=== PATIENT | female | born 1990 | race Caucasian/White ===

== ENCOUNTER 2019-06-15 03:18 | Inpatient (IN) ==
[2019-06-15] MEDS ORDERED: CeFAZolin Premix DUPLEX 2,000 MG/50 ML BAG IVPB ONE (03:35)
[2019-06-15] MEDS ORDERED: Famotidine 20 MG/2 ML VIAL IVP PRN (03:35)
[2019-06-15] MEDS ORDERED: Naloxone 0.4 MG/ML INJ IVP PRN (03:35)
[2019-06-15] MEDS ORDERED: Metoclopramide 10 MG/2 ML VIAL IVP PRN ×2 (03:35→08:28)
[2019-06-15] MEDS ORDERED: Ringers Solution, Lactated 1,000 ML ONE ×2 (03:42→05:05)
[2019-06-15] MEDS ORDERED: Ringers Solution, Lactated 1,000 ML IVC SCH ×2 (03:45→08:28)
--- NOTE | 2019-06-15 04:03 | OB/GYN History & Physical ---
Date of Encounter: 06/15/19 Time of Encounter: 03:52 Assessment and Plan (1) 38 weeks gestation of Current visit: Yes Status: Acute (2) Grover breech presentation Current visit: Yes Status: Acute 28YO at 38+6wks GA who presents SROM'd, in labor 1. SROM - actively leaking clear amniotic fluid - good FM contraction(s) every 5 minutes - denies vaginal bleeding, denies abnormal discharge - UTD PNC with Dr. Anand, transfer of care mid from Dr. Santos - dating verified by 1st TM (8wk4d) TVUS ultrasound, complicated by "vanishing t win" - SVE: 1/thick/high, patient is comfortable with examination - consent was signed and anesthesia was consulted for surgery - TAUS performed on admission: grover breech presentation 2. Hx of HCV - known hx of IVDA: heroin - clean for 2 years, was taking Vivitrol - patient to f/u with ID - patient will need PAP smear Dispo: Admission to labor and delivery for delivery. Term , G1, breech presentation. MD EULALIA Qualifiers: Qualified Code(s): O32.1XX0 - Maternal care for breech presentation, not applicable or unspecified History of Present Illness Chief complaint: SROM HPI: Ms. Cortes is a 28 year old female at 38+6wks GA c/b 8wk TVUS who presents in labor, s/p SROM. Patient reports to have started to leak clear fluid early this morning around 0200. Last meal was at 2100 yesterday evening. Denies n/v/d. Good FM. Denies vaginal bleeding. Denies abnormal discharge prior to leaking fluid. Her was complicated by a known hx of HCV, states to have been in remission for the past 2 years. States to have been on Vivitrol pre- . Hx of IV heroin abuse. Patient was scheduled for primary delivery with Dr. Anand on 06/20/2019 at 0745 AM. Otherwise has had an uncomplicated . Presents with FOB and immediate family this morning. OF NOTE, patient was a transfer of care to our practice during . Per patient records from Dr. Diaz office, she had a vanishing twin this . PNB: GBS negative GC/CT negative O positive AB screening Rubella immune HCV positive RPR nonreactive HBsAg negative PATIENT NEEDS PAP Past Med Surg Social Fam HX - Past Medical History Medical history: no medical history Additional medical history: drug use. MRSA Psychiatric history: anxiety - Past Surgical History Surgical History: no surgical history - Social History Smoking Status: Current every day smoker Smokeless Tobacco Status: No Alcohol use: none Drug use: none - Family History Mother Living Status: Still Living Hx Family Cardiac Disorders: Yes (heart disease) Hx Family Respiratory Disorders: No Hx Family Cancer: No Hx Family GI Disorders: No Hx Family Genitourinary Disorders: No Hx Family Endocrine Disorder: Yes (DM) Hx Family Musculoskeletal Disorders: No Hx Family Neuromuscular Disorders: No Hx Family Neurologic Disorders: No Hx Family HEENT Disorders: No Hx Family Autoimmune Disorders: No Hx Family Reproductive Disorders: No Hx Family Psychosocial Disorders: No Hx Family Medical Disorders: No Obstetrical History - Pregnancies : 1 Para: 0 Term: 0 : 0 Ab's: 0 Livin Medications and Allergies Pnv No.115/Iron Fumarate/FA [ 19 Chewable Tablet] 1 each PO DAILY #30 tab.chew 10/27/18 [Rx] Allergy/AdvReac Type Severity Reaction Status Date / Time promethazine [From Phenergan] AdvReac Vomiting Verified 10/27/18 01:16 Exam - Constitutional Constitutional: well developed, well nourished, no acute distress - HEENT HEENT: Normocephaly, Mucus Membranes Moist - Neck Neck exam: full ROM - Lungs Respiratory exam: CTAB - Cardiovascular Cardiovascular exam: RRR - Abdomen Abdomen: Present: bowel sounds normal - Extremities Extremities exam: full ROM Deep Tendon Reflex Grade: 2+ Normal - Vagina Vagina: Present: normal moisture - Cervix Dilation: 1 Station: -3 - Uterus Uterus exam: Present: normal size, normal contour - Anus/Rectum Anus/Rectum: Present: normal perianal skin Results All other labs normal. - VTE Reasons for not Prescribing Prophylaxis: Treatment not Indicated - Low risk for VTE
[2019-06-15 04:04] LABS: Basophils % 0.2 %; Eosinophils # 0.1 K/mcL (0.0-0.6); Eosinophils % 0.7 %; Hematocrit 34.3 % (35.3-44.9); Hemoglobin 11.8 g/dL (11.5-15.4); Immature Granulocytes % 0.9 % (0-4); Lymphocytes # 3.1 K/mcL (0.6-4.6); Lymphocytes % 18.9 %; Mean Corpuscular HGB Conc 34.4 g/dL (31.6-35.5); Mean Corpuscular Hemoglobin 31.2 pg (28.0-33.3); Mean Corpuscular Volume 90.7 fL (83.0-100.0); Mean Platelet Volume 10.6 fL (9.4-12.4); Monocytes # 0.9 K/mcL (0.0-1.3); Monocytes % 5.7 %; Platelet Count 243 K/mcL (140-400); Red Blood Count 3.78 M/mcL (3.82-4.97); Red Cell Distribution Width 12.9 % (11.5-14.5); Segmented Neutrophils % 73.6 %; White Blood Count 16.3 K/mcL (4.3-11.1)
[2019-06-15] MEDS ORDERED: EPHEDrine 50 MG/ML VIAL ONE (05:05)
[2019-06-15] MEDS ORDERED: *HR* Oxytocin 10 UNIT/ML VIAL IM ONE (05:05)
[2019-06-15] MEDS ORDERED: *HR* Morphine Sulfate/PF 10 MG/10 ML AMPUL ONE (05:05)
[2019-06-15] MEDS ORDERED: *HR* FentaNYL (PF) 100 MCG/2 ML VIAL ONE (05:05)
[2019-06-15] MEDS ORDERED: Ondansetron 4 MG/2 ML VIAL ONE (05:06)
[2019-06-15] MEDS ORDERED: Ketorolac 30 MG/ML VIAL ONE (05:06)
[2019-06-15] MEDS ORDERED: Dexamethasone 4 MG/ML VIAL ONE (05:06)
--- NOTE | 2019-06-15 05:22 | Anesthesia Evaluation PreOp ---
Date of Encounter: 06/15/19 Time of Encounter: 04:15 - Past History Planned Operation: pcs breech presentation Cardiac History: Denies any Significant Hx Pulmonary History: Denies Any Significant HX [employer] History: Denies Any Significant HX Other Medical History: Denies Any Significant HX Anesthesia History: No Prior Anesthetic Complications : Yes Test: Positive Alcohol Use: none Drug use: none Medications and Allergies Pnv No.115/Iron Fumarate/FA [ 19 Chewable Tablet] 1 each PO DAILY #30 tab.chew 10/27/18 [Rx] Allergy/AdvReac Type Severity Reaction Status Date / Time promethazine [From Phenergan] AdvReac Vomiting Verified 10/27/18 01:16 - Meds/Allergy Pre-op Review Medications Reviewed: Yes Allergies Reviewed: Yes Beta Blockers on Current Med List: No Anesthesia Results - Labs 06/15/19 03:40 Anesthesia Exam - HEENT Pupil (Motor): Pupils equal Mallampati: II Teeth: Normal Oral Opening: Greater than 3 - [employer] LOC: Oriented [employer] Motor: Normal RUE, Normal LUE, Normal RLE, Normal LLE, Normal Face [employer] Sensory: Normal: RUE, LUE, RLE, LLE, Face - Cardiac Rhythm: Regular Murmur: None JVD: No Carotid Bruit: No - Pulmonary Breath Sounds: bilateral Clear Respiratory Effort: Symmetrical Anesthesia Assess/Plan ASA Score: 1 Level of consciousness: Cooperative Anesthetic Plan: Spinal
--- NOTE | 2019-06-15 05:26 | Anesthesia Procedures ---
Date of Encounter: 06/15/19 Time of Encounter: 04:30 Procedures: Anesthesia - Epidural/Spinal Patient ID/Chart reviewed: Yes Patient examined: Yes OB Eval: Gestational age: 38.6 OB Eval: : 1 OB Eval: Hx Para: 0 OB Eval: Contractions: Non-stressed pattern Consent Obtained: Yes Supplemental Oxygen: None/Room Air Site Prep: Aseptic Technique, Sterile prep and drape, Povidone-Iodine 1% Patient position: upright Amount of Local Anesthetic used: 3 Interspace Used: L4-L5 Blood: No CSF: Yes Paresthesia: No Spinal Needle Gauge: 22 Procedure: tolerated procedure well VSS Vitals + FHT's: FHTS throughout see nursing notes
--- NOTE | 2019-06-15 05:55 | OB/GYN Procedure Note ---
Section - Date of procedure: 06/15/19 Preop diagnosis: breech Post-op diagnosis: same Procedure: primary low transverse Surgeon: Zak Wills Quantitated Blood Loss: 500 Was there an ophthalmology assistant present: No Anesthesia Type: Spinal section complications: none Disposition: L&D Recovery Room Specimens: Placenta, Cord segment, Cord blood - (s) A Infant Delivery Date: 06/15/19 Delivery Time: 05:00 Presentation: footling breech Gender: Male Viability: Viable Pounds: 8 Ounces: 5 Gram Weight: 3760 kg at 1 minute: 9 at 5 minutes: 9 Shoulder Dystocia: not encountered Specimens collected: cord blood Placenta: spontaneous Cord: nuchal cord, delivered through nuchal - Narrative Narrative: OPERATIVE REPORT: PROCEDURE: PRIMARY LOW TRANSVERSE DELIVERY PREOPERATIVE DIAGNOSIS: 1. TERM AT 38+6WKS GA 2. FOOTLING BREECH PRESENTATION 3. SPONTANEOUS RUPTURE OF MEMBRANES 4. HX OF IV DRUG ABUSE POSTOPERATIVE DIAGNOSIS: SAME PATIENT NAME: ZECHARIAH ELIZABETH SURGEON: ZAK WILLS MD PSYCHOLOGICAL AIDE: NONE EBL: 500ML UOP: 100ML YELLOW URINE IVF: 1000ML SPECIMEN: 1. PLACENTA (NOT SENT) 2. CORD BLOOD 3. CORD SEGMENT CONSENT: CONSENT SIGNED WITH PATIENT FOR PLTCS AT TERM FOR BREECH PRESENTATION IN THE SETTING OF LABOR, SPONTANEOUS RUPTURE OF CLEAR FLUID. ALL RISKS WERE DISCUSSED WITH THE PATIENT PRIOR TO ENTERING THE OPERATING ROOM. DETAILS: PATIENT WAS TAKEN TO THE OR WHERE SPINAL ANESTHESIA WAS FOUND TO BE ADEQUATE. PATIENT WAS THEN PREPPED AND DRAPED IN THE USUAL STERILE FASHION. TIMEOUT WAS PERFORMED AND A PFANNENSTIEL SKIN INCISION WAS MADE. WE THEN CARRIED THE INCISION DOWN TO THE LEVEL OF THE FASCIA AND EXTENDED LATERALLY. WE SCORED THE FASCIA AT THE MIDLINE, AND EXTENDED BILATERALLY USING CURVED LAN SCISSORS AND PICK UPS. WE THEN TENTED UP THE FASCIA TO CREATE THE RECTO-FASCIAL PLANE, BOTH SUPERIORLY AND INFERIORLY. WE THEN BLUNTLY THE FASCIA FROM THE RECTUS WITHOUT DEFECT. USING HEMOSTATS, WE THE RECTUS ABDOMINUS AT THE MIDLINE, AND ENTERED THE PERITONEUM BLUNTLY. USING EQUAL BUT OPPOSITE FORCE, WE EXTENDED THE ENTRY OF THE ABDOMEN, AND PLACED THE BLADDER BLADE AT THE LOWER UTERINE SEGMENT TO ENSURE ADEQUATE VISUALIZATION. WE THEN TOOK NOTE OF THE BLADDER REFLECTION, AND DID NOT MAKE A BLADDER FLAP. HYSTEROTOMY WAS PERFORMED, WITH CAUTION THE PATIENT HAD ALREADY SPONTANEOUSLY BEGUN TO LEAK FLUID. THE HYSTEROTOMY WAS EXTENDED LATERALLY (LOW TRANSVERSE) FASHION, WE COULD APPRECIATE BABY BOY IN THE FOOTLING BREECH PRESENTATION. THE BABY WAS ROTATED AND THE BUTTOCKS WAS DELIVERED FIRST, FOLLOWED BY THE R LIMB, THE LEFT LIMB, THE R UPPER EXTREMITY, AND THEN THE L UPPER EXTREMITY. A LOOSE NUCHAL CORD WAS APPRECIATED PRIOR TO DELIVERING THE HEAD. WE DELIVERED THROUGH THE LOOSE NUCHAL. INFANT WAS VIGOROUS AND CRYING. CORD DELAY WAS ALLOWED. WE THEN CUT AND CLAMPED THE UMBILICAL CORD AND HANDED THE TO THE WARMER WITH RN. CORD BLOOD AND SEGMENT WAS COLLECTED. NO GASES REQUIRED OR SENT. PLACENTA WAS THEN DELIVERED INTACT WITH MINIMAL TRACTION. UTERUS WAS EXTERIORIZED AND CLOSED USING 0-VICRYL IN 2 LAYERS, RUNNING LOCKED THEN WITH IMBRICATION. BOTH ANGLES WERE FOUND TO BE HEMOSTATIC WE REPLACED THE UTERUS INTO THE ABDOMEN. WE THEN CLEARED GUTTERS BILATERALLY OF DEBRIS. WE THEN CLOSED OUR FA SCIA INCISION USING STRATAFIX, IN THE USUAL FASHION. SUBCUTANEOUS TISSUE WAS HEMOSTATIC, WE DID IRRIGATE. SKIN WAS CLOSED USING 4-0 VICRYL, IN THE RUNNING UNLOCKED FASHION. ALL COUNTS WERE CORRECT X3. HEMOSTASIS WAS APPRECIATED. WEIGHT: 8#5OZ, 3760GMS APGARS: 06/11 GENDER: MALE ZAK WILLS MD
[2019-06-15] MEDS ORDERED: Ketorolac 30 MG/ML VIAL IVP ONE (05:59)
[2019-06-15] MEDS ORDERED: Ondansetron 4 MG/2 ML VIAL IVP ONE (05:59)
[2019-06-15] MEDS ORDERED: *HR* HYDROmorphone (PF) 1 MG/ML SYRINGE IVP PRN (05:59)
[2019-06-15] MEDS ORDERED: Albuterol 2.5 MG/3 ML NEBULIZER IH ONE (05:59)
[2019-06-15] MEDS ORDERED: *HR* Meperidine 25 MG/ML SYRINGE IVP PRN (05:59)
[2019-06-15] MEDS ORDERED: Oxytocin 20 units/ LR 1000 mL 20 UNIT/1,000 ML BAG IVC ONE (06:01)
[2019-06-15] MEDS ORDERED: Ketorolac 30 MG/ML VIAL IVP PRN (08:28)
[2019-06-15] MEDS ORDERED: Rho Immune Globulin 1,500 UNIT SYRINGE IM ONE (08:28)
[2019-06-15] MEDS ORDERED: Ondansetron 4 MG/2 ML VIAL IVP PRN (08:28)
[2019-06-15] MEDS ORDERED: Oxytocin 20 units/ LR 1000 mL 20 UNIT/1,000 ML BAG IVC SCH (08:28)
[2019-06-15] MEDS ORDERED: Sennosides 8.6 MG TABLET PO PRN (08:28)
[2019-06-15] MEDS ORDERED: Acetaminophen 325 MG TABLET PO PRN (08:28)
--- NOTE | 2019-06-15 10:36 | Anesthesia Evaluation Post Op ---
Date of Encounter: 06/15/19 Time of Encounter: 10:35 - Vital Signs Vital Signs: Vital Signs/O2 Sat, Most Current Temp Pulse Resp BP Pulse Ox 98.1 F 80 16 118/68 99 06/15/19 09:30 06/15/19 09:30 06/15/19 09:30 06/15/19 09:30 06/15/19 09:30 - Lungs Lungs: Clear Ascult./Percussion - Airway Airway: Non-obstructed - Cardiovascular Regular Rate - Mental Status Mental Status: Alert & Oriented, Answers Appropriately - Pain Pain Scale: 4 - Nausea Vomiting Nausea Vomiting: Not Present - Hydration Hydration: Tolerates oral liquids, Gore catheter - Discharge PostOp Status: Transfer Patient to floor
[2019-06-15] MEDS: *HR* OxyCODONE ER (12 HR) 10 MG TABLET PO SCH ×2 (11:00→23:48)
[2019-06-15 15:00] LABS: Basophils % 0.2 %; Eosinophils % 0.1 %; Hematocrit 25.1 % (35.3-44.9); Lymphocytes # 1.8 K/mcL (0.6-4.6); Lymphocytes % 9.3 %; Mean Corpuscular HGB Conc 34.3 g/dL (31.6-35.5); Mean Corpuscular Hemoglobin 31.9 pg (28.0-33.3); Mean Platelet Volume 10.7 fL (9.4-12.4); Monocytes # 1.1 K/mcL (0.0-1.3); Monocytes % 5.9 %; Neutrophils # 15.7 K/mcL (1.6-8.9); Platelet Count 232 K/mcL (140-400); Segmented Neutrophils % 83.5 %; White Blood Count 18.8 K/mcL (4.3-11.1)
[2019-06-15 15:02] LABS: Hemoglobin 8.6 g/dL (11.5-15.4)
[2019-06-15] MEDS: Ibuprofen 600 MG TABLET PO PRN (15:55)
--- NOTE | 2019-06-15 17:16 | Event Note ---
Date of Encounter: 06/15/19 Time of Encounter: 14:00 Called to room by our and. Patient feeling chest pain, late headache, RN notes patient pale. Noted low BP, fluid bolus, CBC and EKG ordered. Upon assessment patient already said pain was improving, fundus firm no evidence of increased vaginal bleeding. EKG shows normal sinus rhythm with short [place] interval and possible right ventricular conduction delay. EKG reviewed with Dr. Goins and (cardiology) normal ECG findings. Pt states feeling better, pain resolving, BP improved back to baseline
[2019-06-15] MEDS: Simethicone 80 MG TAB.CHEW PO PRN (20:45)
[2019-06-16] MEDS: Ibuprofen 600 MG TABLET PO PRN (06:27)
[2019-06-16 06:34] LABS: Basophils % 0.2 %; Eosinophils # 0.1 K/mcL (0.0-0.6); Hematocrit 19.6 % (35.3-44.9); Hemoglobin 6.7 g/dL (11.5-15.4); Immature Granulocytes % 1.1 % (0-4); Lymphocytes # 2.5 K/mcL (0.6-4.6); Lymphocytes % 18.3 %; Mean Corpuscular HGB Conc 34.2 g/dL (31.6-35.5); Mean Corpuscular Hemoglobin 32.1 pg (28.0-33.3); Mean Corpuscular Volume 93.8 fL (83.0-100.0); Mean Platelet Volume 10.8 fL (9.4-12.4); Monocytes # 1.1 K/mcL (0.0-1.3); Monocytes % 8.3 %; Neutrophils # 9.6 K/mcL (1.6-8.9); Platelet Count 220 K/mcL (140-400); Red Blood Count 2.09 M/mcL (3.82-4.97); Red Cell Distribution Width 13.2 % (11.5-14.5); Segmented Neutrophils % 71.1 %; White Blood Count 13.5 K/mcL (4.3-11.1)
[2019-06-16] MEDS: Prenatal Vit/FA 1 EACH TABLET PO SCH ×2 (08:04→10:19)
[2019-06-16] MEDS: *HR* OxyCODONE ER (12 HR) 10 MG TABLET PO SCH ×3 (08:05→16:00)
[2019-06-16] MEDS: Simethicone 80 MG TAB.CHEW PO PRN ×2 (08:07→19:40)
--- NOTE | 2019-06-16 08:30 | OB/GYN Progress Note ---
Date of Encounter: 06/16/19 Time of Encounter: 08:28 - Assessment and Plan (1) delivery delivered Current Visit: Yes Status: Acute Continue routine postop / care Meeting appropriate milestones Anticipate discharge home tomorrow (2) Anemia of the puerperium Current Visit: Yes Status: Acute VSS; Asymptomatic Increase iron to BID Consider PRBCs if patient becomes symptomatic. Subjective - Subjective Principal diagnosis: S/P Primary C/S for Breech presentation Interval history: S/P Delivery Day 1. VSS Pain is well controlled Lochia is light and without clots Tolerating regular diet, passing flatus Voiding without difficulty Breast feeding Discharge home POD 2 or 3 POC per consult with Dr Amaral Patient reports: appetite normal, voiding normally, pain well controlled, ambulating normally [place]: doing well, bottle feeding Objective - Vital Signs Latest vital signs: Vital Signs Temp Pulse Pulse Resp BP Pulse Ox 06/16/19 04:00 98.1 F 88 15 113/70 98 06/15/19 23:48 98.2 F 102 15 104/58 99 06/15/19 21:23 98.6 F 104 16 114/73 99 06/15/19 15:50 97.8 F 92 16 103/73 100 06/15/19 14:20 16 18 118/69 100 06/15/19 14:15 92 16 97/65 06/15/19 14:10 99 16 103/69 99 06/15/19 10:30 98.2 F 81 81 16 123/75 100 06/15/19 09:30 98.1 F 77 80 16 118/68 99 06/15/19 08:30 98 F 77 77 16 116/79 98 Intake and Output 06/15/19 06/16/19 06/16/19 23:59 07:59 15:59 Output Total 550 / 550 Balance -550 / -550 Output: Catheter 550 / 550 - Exam Lungs: bilateral: normal Chest: Normal S1, Normal S2 Extremities: Present: normal Abdomen: Present: normal appearance, soft. Absent: gravid, distention, tenderness Incision: Present: normal, dry, intact Uterus: Present: normal, firm Fundal Height: 0 (u/2) - Labs Labs: Laboratory Results - last 24 hr 06/15/19 06/16/19 14:27 05:57 WBC 18.8 H 13.5 H RBC 2.70 L 2.09 L Hgb 8.6 L D 6.7 L D Hct 25.1 L 19.6 L MCV 93.0 93.8 MCH 31.9 32.1 MCHC 34.3 34.2 RDW 13.0 13.2 Plt Count 232 220 MPV 10.7 10.8 Immature Gran % 1.0 1.1 Seg Neutrophils % 83.5 71.1 Lymphocytes % 9.3 18.3 Monocytes % 5.9 8.3 Eosinophils % 0.1 1.0 Basophils % 0.2 0.2 Neutrophils # 15.7 H 9.6 H Lymphocytes # 1.8 2.5 Monocytes # 1.1 1.1 Eosinophils # 0.0 0.1 Basophils # 0.0 0.0
[2019-06-16] MEDS: Ibuprofen 600 MG TABLET PO SCH ×2 (11:39→17:58)
[2019-06-16] MEDS: Acetaminophen 325 MG TABLET PO SCH ×3 (11:39→17:59)
[2019-06-17] MEDS: Ibuprofen 600 MG TABLET PO SCH ×3 (00:14→11:56)
[2019-06-17] MEDS: Acetaminophen 325 MG TABLET PO SCH ×3 (00:15→11:55)
[2019-06-17 08:13] VITALS: BP 114/73
[2019-06-17] MEDS: Prenatal Vit/FA 1 EACH TABLET PO SCH (08:28)
[2019-06-17] MEDS: *HR* OxyCODONE ER (12 HR) 10 MG TABLET PO SCH ×2 (08:28)
[2019-06-17] MEDS ORDERED: Lanolin 7 G OINT...G. TP PRN (09:35)
[2019-06-17 10:46] LABS: Basophils % 0.3 %; Eosinophils # 0.2 K/mcL (0.0-0.6); Eosinophils % 1.5 %; Hematocrit 20.8 % (35.3-44.9); Lymphocytes # 2.1 K/mcL (0.6-4.6); Lymphocytes % 19.1 %; Mean Corpuscular HGB Conc 33.7 g/dL (31.6-35.5); Mean Corpuscular Hemoglobin 31.7 pg (28.0-33.3); Mean Corpuscular Volume 94.1 fL (83.0-100.0); Monocytes # 0.6 K/mcL (0.0-1.3); Monocytes % 5.7 %; Platelet Count 264 K/mcL (140-400); Red Blood Count 2.21 M/mcL (3.82-4.97); Red Cell Distribution Width 13.2 % (11.5-14.5); Segmented Neutrophils % 72.4 %
--- NOTE | 2019-06-17 11:42 | Discharge Summary ---
Date of Encounter: 06/17/19 Time of Encounter: 11:35 - Discharge Diagnosis (1) Acute blood loss anemia Priority: Primary Status: Acute Comments: Stable, asymptomatic, discussed with Dr. Goins, no transfusion at this time, will discharge home on iron BID (2) delivery delivered Priority: Primary Status: Acute Comments: Stable, meeting all PP Milestones, pain well managed, tolerates diet, desires discharge. - Discharge Medications Prescriptions: New Docusate [Colace] 100 mg PO BID #30 capsule Ferrous Sulfate 325 mg PO BIDWM #60 tablet Ibuprofen [Motrin] 600 mg PO Q6HR #60 tablet Acetaminophen [Tylenol] 325 mg PO Q6HR tablet Simethicone [Gas-X] 80 mg PO TID PRN tab.chew PRN Reason: Dyspepsia Lanolin [Lansinoh] 1 appl TP TID PRN oint...g. PRN Reason: Sore Nipples Docusate [Colace] 100 mg PO BID #30 capsule Ferrous Sulfate 325 mg PO BIDWM #60 tablet Simethicone [Gas-X] 80 mg PO TID PRN tab.chew PRN Reason: Dyspepsia Lanolin [Lansinoh] 1 appl TP TID PRN oint...g. PRN Reason: Sore Nipples Ibuprofen [Motrin] 600 mg PO Q6HR #60 tablet OxyCODONE/APAP 5/325 [Percocet 5/325 MG] 1 each PO Q6HR PRN 5 Days #20 tablet PRN Reason: Pain Acetaminophen [Tylenol] 325 mg PO Q6HR tablet Continued Pnv No.115/Iron Fumarate/FA [ 19 Chewable Tablet] 1 each PO DAILY #30 tab.chew Home Medications: Pnv No.115/Iron Fumarate/FA [ 19 Chewable Tablet] 1 each PO DAILY #30 tab.chew 10/27/18 [Rx] Acetaminophen [Tylenol] 325 mg PO Q6HR tablet 06/17/19 [Rx] Acetaminophen [Tylenol] 325 mg PO Q6HR tablet 06/17/19 [Rx] Docusate [Colace] 100 mg PO BID #30 capsule 06/17/19 [Rx] Docusate [Colace] 100 mg PO BID #30 capsule 06/17/19 [Rx] Ferrous Sulfate 325 mg PO BIDWM #60 tablet 06/17/19 [Rx] Ferrous Sulfate 325 mg PO BIDWM #60 tablet 06/17/19 [Rx] Ibuprofen [Motrin] 600 mg PO Q6HR #60 tablet 06/17/19 [Rx] Ibuprofen [Motrin] 600 mg PO Q6HR #60 tablet 06/17/19 [Rx] Lanolin [Lansinoh] 1 appl TP TID PRN oint...g. 06/17/19 [Rx] Lanolin [Lansinoh] 1 appl TP TID PRN oint...g. 06/17/19 [Rx] OxyCODONE/APAP 5/325 [Percocet 5/325 MG] 1 each PO Q6HR PRN 5 Days #20 tablet 06/17/19 [Rx] Simethicone [Gas-X] 80 mg PO TID PRN tab.chew 06/17/19 [Rx] Simethicone [Gas-X] 80 mg PO TID PRN tab.chew 06/17/19 [Rx] Allergies/Adverse Reactions: Allergy/AdvReac Type Severity Reaction Status Date / Time promethazine [From Phenergan] AdvReac Vomiting Verified 10/27/18 01:16 Data Procedures and tests throughout hospitalization: Laboratory Tests 06/15/19 06/15/19 06/16/19 03:40 14:27 05:57 WBC 16.3 H 18.8 H 13.5 H RBC 3.78 L 2.70 L 2.09 L Hgb 11.8 8.6 L D 6.7 L D Hct 34.3 L 25.1 L 19.6 L MCV 90.7 93.0 93.8 MCH 31.2 31.9 32.1 MCHC 34.4 34.3 34.2 RDW 12.9 13.0 13.2 Plt Count 243 232 220 MPV 10.6 10.7 10.8 Immature Gran % 0.9 1.0 1.1 Seg Neutrophils % 73.6 83.5 71.1 Lymphocytes % 18.9 9.3 18.3 Monocytes % 5.7 5.9 8.3 Eosinophils % 0.7 0.1 1.0 Basophils % 0.2 0.2 0.2 Neutrophils # 12.0 H 15.7 H 9.6 H Lymphocytes # 3.1 1.8 2.5 Monocytes # 0.9 1.1 1.1 Eosinophils # 0.1 0.0 0.1 Basophils # 0.0 0.0 0.0 06/17/19 10:25 WBC 11.0 RBC 2.21 L Hgb 7.0 L Hct 20.8 L MCV 94.1 MCH 31.7 MCHC 33.7 RDW 13.2 Plt Count 264 MPV 10.0 Immature Gran % 1.0 Seg Neutrophils % 72.4 Lymphocytes % 19.1 Monocytes % 5.7 Eosinophils % 1.5 Basophils % 0.3 Neutrophils # 8.0 Lymphocytes # 2.1 Monocytes # 0.6 Eosinophils # 0.2 Basophils # 0.0 Labs on day of discharge: Labs from last 24 hours 06/17/19 10:25 WBC 11.0 RBC 2.21 L Hgb 7.0 L Hct 20.8 L MCV 94.1 MCH 31.7 MCHC 33.7 RDW 13.2 Plt Count 264 MPV 10.0 Immature Gran % 1.0 Seg Neutrophils % 72.4 Lymphocytes % 19.1 Monocytes % 5.7 Eosinophils % 1.5 Basophils % 0.3 Neutrophils # 8.0 Lymphocytes # 2.1 Monocytes # 0.6 Eosinophils # 0.2 Basophils # 0.0 Date of admission: 06/15/19 03:18 Consults: 06/15/19 08:28 Consult to [facility] (W&C) [CONS] Routine Reason For Exam: Reason for SW Consult: Hx of IV drug abuse Discharging clinician: Gely Rangel Anticipated date of discharge: 06/17/19 - Patient Status Disposition: Home, Self-Care Condition: Good Functional capacity at discharge: independent ambulation Overall status at discharge: patient is progressing back to baseline - Discharge Instructions Follow Up With: Brionna Alexis MD [Partnered Physician] - - Diet and Activity Activity: resume usual activities as tolerated Diet: regular diet Hospital Course Reason for admission: section Delivery: section Episiotomy: none Laceration: none Other procedures: none complications: none Discharge diagnosis: IUP at term delivered [place] baby: male Hospital course: Section - Date of procedure: 06/15/19 Preop diagnosis: breech Post-op diagnosis: same Procedure: primary low transverse Surgeon: Brionna Alexis Quantitated Blood Loss: 500 Was there an seismic survey assistant present: No Anesthesia Type: Spinal section complications: none Disposition: L&D Recovery Room Specimens: Placenta, Cord segment, Cord blood - (s) A Delivery Date: 06/15/19 Infant Delivery Time: 05:00 Presentation: footling breech Gender: Male Viability: Viable Pounds: 8 Ounces: 5 Gram Weight: 3760 kg at 1 minute: 9 at 5 minutes: 9 Shoulder Dystocia: not encountered Specimens collected: cord blood Placenta: spontaneous Cord: nuchal cord, delivered through nuchal Stable in PP and appropriate for discharge OARRS reviewed Time Attestation: Total time spent providing and/or coordinating discharge services: Time Spent: Less than 30 minutes - VTE Reasons for not Prescribing Prophylaxis: Treatment not Indicated - Low risk for VTE Documentation of Mechanical Device: Intermittent pneumatic compression device Exam - Constitutional Vitals: Temp Pulse Resp BP Pulse Ox 98.2 F 97 16 114/73 100 06/17/19 08:12 06/17/19 08:12 06/17/19 08:12 06/17/19 08:12 06/16/19 19:40 General appearance IM: A&O X 3 - Respiratory Respiratory exam: Present: CTAB - Cardiovascular Cardiovascular exam IM: Present: RRR - GI/Abdominal GI/Abdominal exam IM: soft Incision: intact - Uterine Tone: Firm Uterus Position: At Umbilicus - Extremities Exam Extremities exam IM: Present: normal capillary refill, normal inspection - Neurological Exam Neurological exam: normal gait, oriented X3 - Psychiatric Additional comments: reports good mood
[2019-06-17] MEDS ORDERED: MOM Conc 10 ML UD.LIQ PO ONE (11:53)
--- NOTE | 2019-06-18 12:24 | Electrocardiograph Report ---
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
== END 2019-06-17 13:15 | disposition home or self-care (01) | DRG 540 ==
LOC: 1NENULAB → OBSVTOIN 03:18 → 1NENUOBS 08:28
PROVIDERS: ADMIT Advanced Practice Midwife; ATTEND Advanced Practice Midwife

== ENCOUNTER 2020-08-21 08:02 | Inpatient (IN) ==
[2020-08-21] MEDS ORDERED: Ringers Solution, Lactated 1,000 ML IVC ONE (08:43)
[2020-08-21] MEDS ORDERED: CeFAZolin Syr 2,000MG/20 ML 2,000 MG/20 ML SYRINGE IVPB ONE (08:43)
[2020-08-21] MEDS ORDERED: Metoclopramide 10 MG/2 ML VIAL IVP ONE (08:43)
[2020-08-21] MEDS ORDERED: Famotidine 20 MG/2 ML VIAL IVP ONE (08:43)
[2020-08-21] MEDS ORDERED: Ringers Solution, Lactated 1,000 ML IVC SCH (08:45)
[2020-08-21] MEDS ORDERED: *HR* OxyCODONE/APAP 5/325 TABLET PO PRN ×2 (09:36→14:55)
[2020-08-21] MEDS ORDERED: Ondansetron 4 MG/2 ML VIAL IVP PRN ×2 (09:36→14:55)
[2020-08-21] MEDS ORDERED: Ibuprofen 400 MG TABLET PO PRN (09:36)
[2020-08-21] MEDS ORDERED: Acetaminophen IV 1,000 MG/100 ML INFUS..BTL IVPB ONE (09:37)
[2020-08-21] MEDS ORDERED: *HR* FentaNYL (PF) 100 MCG/2 ML VIAL IVP ONE (09:40)
[2020-08-21] MEDS ORDERED: EPHEDrine 50 MG/ML VIAL ONE (09:47)
[2020-08-21] MEDS ORDERED: *HR* Morphine Sulfate/PF 10 MG/10 ML AMPUL ONE (09:47)
[2020-08-21] MEDS ORDERED: Oxytocin 20 units/ LR 1000 mL 20 UNIT/1,000 ML BAG IVC ONE ×2 (09:53→13:10)
[2020-08-21] MEDS ORDERED: Ringers Solution, Lactated 1,000 ML ONE (11:09)
[2020-08-21 11:15] LABS: Adenovirus Not Detected (Not Detect); Bordetella Pertussis Not Detected (Not Detect); Chlamydophila pneumoniae Not Detected (Not Detect); Coronavirus 229E Not Detected (Not Detect); Coronavirus HKU1 Not Detected (Not Detect); Coronavirus NL63 Not Detected (Not Detect); Coronavirus OC43 Not Detected (Not Detect); Human Metapneumovirus Not Detected (Not Detect); Human Rhinovirus/Enterovirus Not Detected (Not Detect); Influenza A Subtype 2009 H1 Not Detected (Not Detect); Influenza B Not Detected (Not Detect); Mycoplasma pneumoniae Not Detected (Not Detect); Parainfluenza Virus 1 Not Detected (Not Detect); Parainfluenza Virus 2 Not Detected (Not Detect); Parainfluenza Virus 3 Not Detected (Not Detect); Parainfluenza Virus 4 Not Detected (Not Detect); Respiratory Syncytial Virus Not Detected (Not Detect); SARS-CoV-2 Not Detected (Not Detect)
[2020-08-21 11:45] LABS: Basophils % 0.3 %; Eosinophils % 0.3 %; Hematocrit 33.4 % (35.3-44.9); Hemoglobin 10.8 g/dL (11.5-15.4); Immature Granulocytes % 0.6 % (0-4); Lymphocytes # 1.6 K/mcL (0.6-4.6); Lymphocytes % 13.6 %; Mean Corpuscular HGB Conc 32.3 g/dL (31.6-35.5); Mean Corpuscular Hemoglobin 28.5 pg (28.0-33.3); Mean Corpuscular Volume 88.1 fL (83.0-100.0); Mean Platelet Volume 11.3 fL (9.4-12.4); Monocytes # 0.5 K/mcL (0.0-1.3); Monocytes % 4.2 %; Neutrophils # 9.4 K/mcL (1.6-8.9); Platelet Count 251 K/mcL (140-400); Red Blood Count 3.79 M/mcL (3.82-4.97); Red Cell Distribution Width 13.3 % (11.5-14.5); White Blood Count 11.6 K/mcL (4.3-11.1)
[2020-08-21] MEDS ORDERED: Rho Immune Globulin 1,500 UNIT SYRINGE IM ONE (14:55)
[2020-08-21] MEDS ORDERED: NON-FORMULARY MEDICATION 1 EACH EACH (Breast Pump [Breast Pump] 1 EACH) SCH (14:55)
[2020-08-21] MEDS ORDERED: Acetaminophen 325 MG TABLET PO PRN (14:55)
[2020-08-21] MEDS ORDERED: Sennosides 8.6 MG TABLET PO PRN (14:55)
[2020-08-21] MEDS ORDERED: Metoclopramide 10 MG/2 ML VIAL IVP PRN (14:55)
[2020-08-21] MEDS ORDERED: Lanolin 7 G OINT...G. TP PRN ×2 (14:55)
[2020-08-21] MEDS ORDERED: Simethicone 80 MG TAB.CHEW PO PRN ×2 (14:55)
[2020-08-21] MEDS: cephALEXin 500 MG CAPSULE PO SCH ×2 (15:28→20:05)
[2020-08-21] MEDS: metroNIDAZOLE 500 MG TABLET PO SCH ×2 (15:28→20:05)
[2020-08-21] MEDS: Oxytocin 20 units/ LR 1000 mL 20 UNIT/1,000 ML BAG IVC SCH (15:56)
[2020-08-21] MEDS: Ibuprofen 600 MG TABLET PO SCH (17:54)
[2020-08-21] MEDS: Acetaminophen 325 MG TABLET PO SCH (17:55)
[2020-08-21] MEDS ORDERED: Ibuprofen 600 MG TABLET PO SCH ×2 (18:00)
[2020-08-21] MEDS: Simethicone 80 MG TAB.CHEW PO PRN (20:06)
[2020-08-22] MEDS: Acetaminophen 325 MG TABLET PO SCH ×4 (00:01→20:23)
[2020-08-22] MEDS: Ibuprofen 600 MG TABLET PO SCH ×4 (00:01→20:24)
[2020-08-22] MEDS: Oxytocin 20 units/ LR 1000 mL 20 UNIT/1,000 ML BAG IVC SCH ×2 (00:08→08:59)
[2020-08-22] MEDS: *HR* OxyCODONE/APAP 5/325 TABLET PO PRN ×2 (02:04→15:02)
[2020-08-22] MEDS: Simethicone 80 MG TAB.CHEW PO PRN ×2 (02:07→15:02)
[2020-08-22] MEDS: cephALEXin 500 MG CAPSULE PO SCH ×3 (08:33→20:24)
[2020-08-22] MEDS: metroNIDAZOLE 500 MG TABLET PO SCH ×3 (08:33→20:24)
[2020-08-22] MEDS: Prenatal Vit/FA 1 EACH TABLET PO SCH (08:34)
[2020-08-22] MEDS ORDERED: [UNRECOGNIZED DRUG - REMARK] PO SCH (09:00)
[2020-08-22 11:20] LABS: Basophils % 0.2 %; Eosinophils # 0.1 K/mcL (0.0-0.6); Eosinophils % 1.3 %; Hematocrit 30.6 % (35.3-44.9); Hemoglobin 9.5 g/dL (11.5-15.4); Immature Granulocytes % 0.5 % (0-4); Lymphocytes # 1.4 K/mcL (0.6-4.6); Lymphocytes % 14.6 %; Mean Corpuscular Hemoglobin 28.1 pg (28.0-33.3); Mean Corpuscular Volume 90.5 fL (83.0-100.0); Mean Platelet Volume 10.6 fL (9.4-12.4); Monocytes # 0.6 K/mcL (0.0-1.3); Monocytes % 6.5 %; Neutrophils # 7.4 K/mcL (1.6-8.9); Platelet Count 204 K/mcL (140-400); Red Blood Count 3.38 M/mcL (3.82-4.97); Red Cell Distribution Width 13.2 % (11.5-14.5); Segmented Neutrophils % 76.9 %; White Blood Count 9.6 K/mcL (4.3-11.1)
[2020-08-23] MEDS: Ibuprofen 600 MG TABLET PO SCH ×2 (02:36→08:04)
[2020-08-23] MEDS: Acetaminophen 325 MG TABLET PO SCH ×2 (02:36→08:03)
[2020-08-23 08:04] VITALS: BP 131/87
[2020-08-23] MEDS: metroNIDAZOLE 500 MG TABLET PO SCH (08:04)
[2020-08-23] MEDS: Prenatal Vit/FA 1 EACH TABLET PO SCH (08:04)
[2020-08-23] MEDS: cephALEXin 500 MG CAPSULE PO SCH (08:04)
== END 2020-08-23 14:01 | disposition home or self-care (01) | DRG 540 ==
LOC: 1NENULAB 08:02 → 1NENUOBS 14:30
PROVIDERS: ADMIT Student in an Organized Health Care Education/Training Program; ATTEND Student in an Organized Health Care Education/Training Program

== ENCOUNTER 2021-08-26 09:36 | Inpatient (IN) ==
[2021-08-26] MEDS ORDERED: Metoclopramide 10 MG/2 ML VIAL IVP ONE (11:09)
[2021-08-26] MEDS ORDERED: Famotidine 20 MG/2 ML VIAL IVP ONE (11:09)
[2021-08-26] MEDS ORDERED: Oxytocin 20 units/ LR 1000 mL 20 UNIT/1,000 ML BAG IVC ONE (11:09)
[2021-08-26] MEDS ORDERED: CeFAZolin 2,000 MG/120 ML BAG IVPB ONE (11:09)
[2021-08-26] MEDS ORDERED: Ringers Solution, Lactated 1,000 ML IVC ONE (11:09)
[2021-08-26] MEDS ORDERED: Ringers Solution, Lactated 1,000 ML IVC SCH (11:15)
[2021-08-26] MEDS ORDERED: Oxytocin 20 units/ LR 1000 mL 20 UNIT/1,000 ML BAG IVC SCH ×2 (11:15→23:47)
[2021-08-26] MEDS ORDERED: Ringers Solution, Lactated 1,000 ML ONE (11:17)
[2021-08-26 11:35] LABS: Basophils % 0.3 %; Eosinophils # 0.1 K/mcL (0.0-0.6); Hematocrit 28.8 % (35.3-44.9); Hemoglobin 9.5 g/dL (11.5-15.4); Immature Granulocytes % 0.8 % (0-4); Lymphocytes # 1.6 K/mcL (0.6-4.6); Lymphocytes % 17.4 %; Mean Corpuscular Hemoglobin 28.8 pg (28.0-33.3); Mean Corpuscular Volume 87.3 fL (83.0-100.0); Mean Platelet Volume 10.3 fL (9.4-12.4); Monocytes # 0.6 K/mcL (0.0-1.3); Monocytes % 6.9 %; Neutrophils # 6.7 K/mcL (1.6-8.9); Platelet Count 243 K/mcL (140-400); Red Cell Distribution Width 13.2 % (11.5-14.5); Segmented Neutrophils % 73.6 %; White Blood Count 9.1 K/mcL (4.3-11.1)
[2021-08-26 11:55] LABS: Amphetamine Screen,Urine Negative ng/mL (Cutoff=1000); Barbiturate Screen,Urine Negative ng/mL (Cutoff=200); Benzodiazepines Screen,Urine Negative ng/mL (Cutoff=200); Cannabinoid Screen,Urine Negative ng/mL (Cutoff = 50); Cocaine Screen,Urine Negative ng/mL (Cutoff= 300); Opiate Screen,Urine Negative ng/mL (Cutoff=300); Phencyclidine Screen,Urine Negative ng/mL (Cutoff=25)
[2021-08-26 12:03] LABS: Influenza A PCR Negative (Negative); Influenza B PCR Negative (Negative); Resp. Syncytial Virus PCR Negative (Negative)
[2021-08-26 12:11] LABS: SARS-CoV-2 by PCR (In House) Negative (Negative)
[2021-08-26] MEDS ORDERED: *HR* FentaNYL (PF) 100 MCG/2 ML VIAL ONE (12:30)
[2021-08-26] MEDS ORDERED: *HR* Morphine Sulfate/PF 10 MG/10 ML AMPUL ONE (12:30)
[2021-08-26] MEDS ORDERED: Ondansetron 4 MG/2 ML VIAL ONE (12:41)
[2021-08-26] MEDS ORDERED: Ketorolac 30 MG/ML VIAL ONE (12:41)
[2021-08-26] MEDS ORDERED: miSOPROStoL 100 MCG TABLET RC ONE (12:42)
[2021-08-26] MEDS ORDERED: Methylergonovine 0.2 MG/ML AMPUL IM ONE (12:42)
[2021-08-26] MEDS ORDERED: Acetaminophen IV 1,000 MG/100 ML BAG IVPB ONE (12:44)
[2021-08-26 16:17] LABS: Basophils % 0.2 %; Eosinophils % 0.2 %; Immature Granulocytes % 0.9 % (0-4); Lymphocytes # 1.2 K/mcL (0.6-4.6); Lymphocytes % 6.2 %; Mean Corpuscular HGB Conc 29.6 g/dL (31.6-35.5); Mean Corpuscular Hemoglobin 28.8 pg (28.0-33.3); Mean Platelet Volume 10.8 fL (9.4-12.4); Monocytes # 0.6 K/mcL (0.0-1.3); Monocytes % 2.8 %; Neutrophils # 17.7 K/mcL (1.6-8.9); Platelet Count 221 K/mcL (140-400); Red Blood Count 2.78 M/mcL (3.82-4.97); Red Cell Distribution Width 13.4 % (11.5-14.5); Segmented Neutrophils % 89.7 %
[2021-08-26 16:18] LABS: Mean Corpuscular Volume 97.1 fL (83.0-100.0); White Blood Count 19.7 K/mcL (4.3-11.1)
[2021-08-26] MEDS ORDERED: 0.9 % Sodium Chloride 1,000 ML ONE ×2 (17:09→20:17)
[2021-08-26] MEDS ORDERED: *HR* OxyCODONE/APAP 5/325 TABLET PO ONE ×2 (18:13→23:47)
[2021-08-26] MEDS ORDERED: Ondansetron 4 MG/2 ML VIAL IVP PRN (23:47)
[2021-08-26] MEDS ORDERED: Metoclopramide 10 MG/2 ML VIAL IVP PRN (23:47)
[2021-08-26] MEDS ORDERED: *HR* OxyCODONE Immed Rel 5 MG TABLET PO PRN (23:47)
[2021-08-26] MEDS ORDERED: Ibuprofen 600 MG TABLET PO SCH (23:47)
[2021-08-26] MEDS ORDERED: Acetaminophen 325 MG TABLET PO SCH (23:47)
[2021-08-26] MEDS ORDERED: NON-FORMULARY MEDICATION 1 EACH EACH (Breast Pump [Breast Pump] 1 EACH Each) SCH (23:47)
[2021-08-26] MEDS ORDERED: Simethicone 80 MG TAB.CHEW PO PRN (23:47)
[2021-08-27] MEDS: cefOXitin 2,000 MG in Water for inj. (sterile) 20 ML IVP SCH ×2 (02:21→13:30)
[2021-08-27 02:56] LABS: Basophils % 0.3 %; Eosinophils % 0.2 %; Hematocrit 23.8 % (35.3-44.9); Hemoglobin 7.8 g/dL (11.5-15.4); Immature Granulocytes % 0.7 % (0-4); Lymphocytes % 13.1 %; Mean Corpuscular HGB Conc 32.8 g/dL (31.6-35.5); Mean Platelet Volume 10.2 fL (9.4-12.4); Monocytes # 1.1 K/mcL (0.0-1.3); Monocytes % 7.5 %; Neutrophils # 11.9 K/mcL (1.6-8.9); Platelet Count 226 K/mcL (140-400); Red Blood Count 2.69 M/mcL (3.82-4.97); Red Cell Distribution Width 13.5 % (11.5-14.5); Segmented Neutrophils % 78.2 %; White Blood Count 15.2 K/mcL (4.3-11.1)
[2021-08-27 02:58] LABS: Mean Corpuscular Volume 88.5 fL (83.0-100.0)
[2021-08-27] MEDS ORDERED: 0.9 % Sodium Chloride 250 ML ONE (04:29)
[2021-08-27] MEDS ORDERED: [UNRECOGNIZED DRUG - REMARK] PO SCH (09:00)
[2021-08-27] MEDS: Ibuprofen 600 MG TABLET PO SCH ×3 (09:21→23:00)
[2021-08-27] MEDS: Acetaminophen 325 MG TABLET PO SCH ×3 (09:22→23:00)
[2021-08-27] MEDS: metroNIDAZOLE 500 MG TABLET PO SCH ×3 (09:22→21:17)
[2021-08-27] MEDS: Prenatal Vit/FA 1 EACH TABLET PO SCH (09:22)
[2021-08-27 16:27] LABS: Basophils % 0.2 %; Eosinophils # 0.1 K/mcL (0.0-0.6); Eosinophils % 0.8 %; Hematocrit 28.6 % (35.3-44.9); Hemoglobin 9.3 g/dL (11.5-15.4); Immature Granulocytes % 0.7 % (0-4); Lymphocytes # 1.8 K/mcL (0.6-4.6); Lymphocytes % 14.4 %; Mean Corpuscular HGB Conc 32.5 g/dL (31.6-35.5); Mean Corpuscular Hemoglobin 29.2 pg (28.0-33.3); Mean Corpuscular Volume 89.7 fL (83.0-100.0); Mean Platelet Volume 9.9 fL (9.4-12.4); Monocytes # 0.9 K/mcL (0.0-1.3); Monocytes % 7.5 %; Neutrophils # 9.6 K/mcL (1.6-8.9); Platelet Count 239 K/mcL (140-400); Red Blood Count 3.19 M/mcL (3.82-4.97); Red Cell Distribution Width 13.6 % (11.5-14.5); Segmented Neutrophils % 76.4 %; White Blood Count 12.5 K/mcL (4.3-11.1)
[2021-08-27] MEDS: *HR* OxyCODONE/APAP 5/325 TABLET PO PRN (21:17)
[2021-08-28 07:35] VITALS: BP 123/78; PULSE 80; TEMP 98.1; O2SAT 98
[2021-08-28] MEDS: Prenatal Vit/FA 1 EACH TABLET PO SCH (08:07)
[2021-08-28] MEDS: metroNIDAZOLE 500 MG TABLET PO SCH (08:07)
[2021-08-28] MEDS: Ibuprofen 600 MG TABLET PO SCH (08:10)
[2021-08-28] MEDS: *HR* OxyCODONE/APAP 5/325 TABLET PO PRN (10:39)
[2021-08-28 10:57] LABS: Basophils % 0.2 %; Eosinophils # 0.1 K/mcL (0.0-0.6); Eosinophils % 1.1 %; Hemoglobin 9.2 g/dL (11.5-15.4); Immature Granulocytes % 0.9 % (0-4); Lymphocytes # 1.3 K/mcL (0.6-4.6); Lymphocytes % 12.9 %; Mean Corpuscular HGB Conc 31.7 g/dL (31.6-35.5); Mean Corpuscular Hemoglobin 28.9 pg (28.0-33.3); Mean Corpuscular Volume 91.2 fL (83.0-100.0); Mean Platelet Volume 10.1 fL (9.4-12.4); Monocytes # 0.5 K/mcL (0.0-1.3); Monocytes % 4.9 %; Neutrophils # 8.1 K/mcL (1.6-8.9); Platelet Count 214 K/mcL (140-400); Red Blood Count 3.18 M/mcL (3.82-4.97); Red Cell Distribution Width 13.8 % (11.5-14.5); White Blood Count 10.2 K/mcL (4.3-11.1)
== END 2021-08-28 13:45 | disposition home or self-care (01) | DRG 539 ==
LOC: 1NENULAB 09:36 → 1NENUOBS 22:44
PROVIDERS: ADMIT Obstetrics & Gynecology; ATTEND Obstetrics & Gynecology